=== PATIENT | male | born 1960 | race Caucasian/White ===

== ENCOUNTER 2025-04-26 11:50 | Emergency (ER) | payer MEDICARE, OTHER, SELFPAY ==
--- NOTE | 2025-04-26 11:52 | XRR_ITS ---
PROCEDURE INFORMATION: Exam: XR Chest Exam date and time: 04/26/2025 12:21 PM Age: 65 years old Clinical indication: Pain; Chest pressure; Additional info: Cp TECHNIQUE: Imaging protocol: Radiologic exam of the chest. Views: 1 view. COMPARISON: No relevant prior studies available. FINDINGS: Lungs: Unremarkable. No consolidation. Pleural spaces: Unremarkable. No gross pleural effusion. No pneumothorax. Heart/Mediastinum: Unremarkable. No cardiomegaly. Bones/joints: There are costochondral calcifications. XR/XR chest 1V portable [id number] IMPRESSION: No acute cardiopulmonary process.
[2025-04-26 11:57] VITALS: PULSE 165; TEMP 36.6; O2SAT 98; BMI 32.0
--- NOTE | 2025-04-26 11:57 | ECG_ITS ---
[facility]25[facility]26 Pat Name: Heath Hamilton Department: Room: Gender: Male Spanish Interpreter: : 1960 Requested By: Zack Munroe Order Number: [id number] Modi MD: Kevin Tinsley M.D. Measurements Intervals [place] Rate: 156 P: 0 TN: 0 QRS: 9 QRSD: 80 T: 64 QT: 290 QTc: 467 Interpretive Statements ATRIAL FIBRILLATION WITH RAPID VENTRICULAR RESPONSE NONSPECIFIC ST & T-WAVE ABNORMALITY Compared to ECG 03/06/2018 14:15:31 Sinus tachycardia no longer present Electronically Signed On 04-26-2025 14:59:21 CHIEF CLERK by Kevin Tinsley M.D. [email or web address]
--- OUTSIDE RECORDS SUMMARY | 2025-04-26 12:01 | XMS_ITS | Data Portability ---
Author Organization [facility] Villegas [facility] Monty Joseph [facility] Address [address] [facility] [address] [place] [address] Assessment No assessment recorded. Plan of Treatment Reminders Order Date Submit Date Provider Last Modified By Organization Details Last Modified Time Details Appointments OFFICE VISIT 15 2025 08:30A Mae Leigh MD Not available Not available Not available Lab hemoglobi n A1C/hemog lobin total, QN, blood 2024 025 [facility], [address] [facility], [address], [address], 04/03/2025 11:53:09 CMP, serum or plasma 2024 025 [facility], [address], [address], 04/03/2025 12:06:38 CMP, serum or plasma 2024 025 [facility]I [facility], [address] [place] [address], [address], [place], [phone], 10/01/2024 03:56:37 lipid panel, blood 2024 025 [email or web address] [employer] [facility], [address] [place] [address] 248, [address], [place], [address], 10/08/2024 14:07:37 CBC 2024 025 [facility], [address], [address], [place], [address], 09/30/2024 12:02:57 hemoglobi n A1C/hemog lobin total, QN, blood 2024 025 [facility], [address], [address], [place], [address], 09/30/2024 12:38:24 CMP, serum or plasma 2023 024 [facility], [address] [place] [address], [address], [place], [address], 09/29/2023 10:48:10 lipid panel, blood 2023 024 [email or web address], [address] [place] [address], [address], [place], [address], 10/08/2023 09:20:32 CBC 2023 024 [facility], [address], [address], [place], [address], 09/28/2023 11:01:36 HbA1c (hemoglob in A1c), blood 2023 024 [facility] ([facility] [address] [place], [address], 09/28/2023 11:27:05 Referral orthopedi c surgeon referral [address] DO, [address] [place], [address], 04/13/2025 11:32:30 Procedures None recorded. Surgeries None recorded. Imaging XR, wrist, 3 or more view [address], [address] [place], [address], 04/02/2024 09:57:36 XR, hand, 3 or more view 2023 Not available 04/11/2024 09:04:19 Medication Orders metoprolo l succinate ER 100 mg tablet,ex tended release 24 hr 2024 [id number], [address], [facility] [address], [place], [address], 04/03/2025 11:24:40 hydroxyzi ne HCl 25 mg tablet 2024 [facility], [address], [place], [address], 09/30/2024 11:35:00 betametha sone acetate and sodium phos 6 mg/mL suspensio n for injection 2024 [email or web address] Not available 04/03/2025 10:59:03 mupirocin 2 % topical ointment 2024 [facility] 15, [address], [place], [address], 09/30/2024 11:35:02 losartan 100 mg tablet 2023 [facility] 15, [address], [place], [address], 04/01/2024 11:37:31 tramadol 50 mg tablet [email or web address] [facility] [address] [facility] 15, [address], [place], [address], 04/03/2025 10:59:00 prednison e 10 mg tablet [email or web address], [address], [place], [address], 09/30/2024 10:44:40 amoxicill in 875 mg tablet 2023 024 [email or web address] 15, [address], [place], [address], 11/07/2023 08:42:22 metoprolo l succinate ER 50 mg tablet,ex tended release 24 hr [email or web address] [place] [address] Pharmacy 15, [address], [place], [address], 04/03/2025 10:58:31 Patient TargetsNo targets recorded. Patient Instructions Encounter Date Encounter Id Patient Instructions Last Modified By Organization Details Last Modified Time 03/29/2024 [id number] Instructed on e AURELIA wrap, Ice, elevated and NSAIDS. Will await radiology read. Not available 04/05/2024 23:12:36 lateral view there could be a possible subtle fracture of the second left metacarpal. It is hard to tell. Will wait for the radiologist read. We applied an AURELIA wrap. Not available 04/05/2024 23:12:44 Reason for Referral Orthopedic Surgeon Referral for Pain of knee region Referring Physician: Eduard Leigh, Family Medicine, Encounter Date: 04/03/2025 Results Created Date Observation Date Name Description Value Unit Range Abnormal Flag Note LastModifiedBy Organization Detail LastModifiedTime 09/28/1909/28/2023 CBC WBC 9.8 x10 4.5-10 .5 Not Available [facility] [address], [place], [address], 09/28/2023 11:01:36 09/28/19 24 09/28/2023 CBC RBC 4.87 x10 4.30-5 .90 Not Available [facility] [address], [place], [address], 09/28/2023 11:01:36 04/19/20 24 09/28/2023 CBC HGB 15.8 g/dL 13.5-1 8.0 Not Available [facility] [address] [facility] 1, [place], [address], 09/28/2023 11:01:36 09/28/19 24 09/28/2023 CBC HCT 46.0 % 35.0-6 0.0 Not Available [facility] [address] [facility] 1, [place], [address], 09/28/2023 11:01:36 09/28/19 24 09/28/2023 CBC MCV 94.5 fL 80.0-9 9.9 Not Available [facility] [address] [facility] 1, [place], [address], 09/28/2023 11:01:36 09/28/19 24 09/28/2023 CBC MCH 32.5 pg 27.0-3 2.0 high Not Available [facility] [address] [facility] 1, [place], [address], 09/28/2023 11:01:36 09/28/19 24 09/28/2023 CBC MCHC 34.4 g/dL 32.0-3 6.0 Not Available [facility] [address] [facility] 1, [place], [address], 09/28/2023 11:01:36 09/28/19 24 09/28/2023 CBC RDW 13.2 % 11.5-1 4.5 Not Available [facility] [address] [facility] 1, [place], [address], 09/28/2023 11:01:36 09/28/19 24 09/28/2023 CBC plt 192.7 x10 150.0- 451.0 Not Available [facility] [address] [facility] 1, [place], [address], 09/28/2023 11:01:36 09/28/19 24 09/28/2023 CBC lymphocytes % 19.1 % 20.0-5 0.0 low Not Available [facility] [address] [facility] 1, [place], [address], 09/28/2023 11:01:36 09/28/19 24 09/28/2023 CBC granulcytes % 67.0 % 30.0-7 0.0 Not Available [facility] [address] [facility] 1, [place], [address], 09/28/2023 11:01:36 09/28/19 24 09/28/2023 CBC monocytes % 9.5 % 2.0-10 .0 Not Available [facility] [address] [address], [place], [address], 09/28/2023 11:01:36 09/28/19 24 09/28/2023 CBC granulcytes# 6.6 x10 Not Leyla ilable [facility] [address] [address], [place], [address], 09/28/2023 11:01:36 09/28/19 24 09/28/2023 CBC lymphocytes # 1.9 x10 Not Available [facility] [address] [facility] 1, [place], [address], 09/28/2023 11:01:36 09/28/19 24 09/28/2023 CBC monocytes # 0.9 x10 Not Avai lable [facility] [address] [address], [place], [address], 09/28/2023 11:01:36 09/28/19 24 09/29/2023 LIPID PANEL , STAND DENISE cholesterol, total 152 mg/dL <200 normal Not Available [facility] [facility] [address], [place], [address], 09/29/2023 10:48:09 09/28/19 24 09/29/2023 LIPID PANEL , STAND DENISE HDL cholesterol 43 mg/dL > or = 40 normal Not Available [facility] [address] [place], [address], 09/29/2023 10:48:09 09/28/19 24 09/29/2023 LIPID PANEL , STAND DNEISE triglyceride s 141 mg/dL <150 normal Not Available [facility] [address], [address], 09/29/2023 10:48:09 09/28/19 24 09/29/2023 LIPID PANEL , STAND DENISE LDL-choleste rol 85 mg/dL _(yaz c) normal Refer ence range : <100 Cesar able range <100 mg/dL for prima ry preve ntion ; <70 mg/dL for patie nts with CHD or diabe tic patie nts with > or = 2 CHD risk facto rs. LDL-C is now calcu lated using the Yarelis n-Hop kins calcu joey n, which is a valid ated novel andrea garibay than the Fried tawnya equat ion in the estim ation of LDL-C . Yarelis byrd SS et al. LUKE. 2013; 310(1 9): 2061- 2068 (http ://ed ucati on.Michael garrison Defywires. com/f aq/FA Q164) Not Available [address] [address] [place], [address], 09/29/2023 10:48:09 09/28/19 24 09/29/2023 LIPID PANEL , STAND DENISE chol/HDLC ratio 3.5 (calc ) <5.0 normal Not Available [facility] [address] [place], [address], 09/29/2023 10:48:09 09/28/19 24 09/29/2023 LIPID PANEL , STAND DENISE non HDL cholesterol 109 mg/dL _(yaz c) <130 normal For patie nts with diabe kleber plus 1 major ASCVD risk facto r, treat ing to a non-H DL-C goal of <100 mg/dL (LDL- C of <70 mg/dL ) is lamar das optio n. Not Available [address] [place], [address], 09/29/2023 10:48:09 09/28/19 24 09/29/2023 COMPR EHENS CHEMO METAB OLIC PANEL glucose 143 mg/dL 65-99 high Fasti ng refer ence inter jayla For someo ne witho ut known diabe kleber, a gluco se value >125 mg/dL indic ates that they may have diabe kleber and this shoul d be confi rmed with a follo w-up test. Not Available [address] [place], [address], 09/29/2023 10:48:10 09/28/19 24 09/29/2023 COMPR EHENS CHEMO METAB OLIC PANEL urea nitrogen (BUN) 14 mg/dL 7-25 normal Not Available [address] [place], [address], 09/29/2023 10:48:10 09/28/19 24 09/29/2023 COMPR EHENS CHEMO METAB OLIC PANEL creatinine 0.98 mg/dL 0.70-1 .35 normal Not Available [facility] [address] [address] [place], [address], 09/29/2023 10:48:10 09/28/19 24 09/29/2023 COMPR EHENS CHEMO METAB OLIC PANEL eGFR 87 mL/mi n/1.7 3m2 > or = 60 normal Not Available [address] [address] [place], [address], 09/29/2023 10:48:10 09/28/19 24 09/29/2023 COMPR EHENS CHEMO METAB OLIC PANEL BUN/creatini ne ratio SEE NOTE: (calc ) 6-22 Not Repor ngoc: BUN and Creat inine are withi n refer ence range . Not Available [address], [address], 09/29/2023 10:48:10 09/28/19 24 09/29/2023 COMPR EHENS CHEMO METAB OLIC PANEL sodium 136 mmol/ L 135-14 6 normal Not Available [address], [address], 09/29/2023 10:48:10 09/28/19 24 09/29/2023 COMPR EHENS CHEMO METAB OLIC PANEL potassium 4.6 mmol/ L 3.5-5. 3 normal Not Available [address], [address], 09/29/2023 10:48:10 09/28/19 24 09/29/2023 COMPR EHENS CHEMO METAB OLIC PANEL chloride 104 mmol/ L 98-110 normal Not Available [address], [address], 09/29/2023 10:48:10 09/28/19 24 09/29/2023 COMPR EHENS CHEMO METAB OLIC PANEL carbon dioxide 25 mmol/ L 20-32 normal Not Available [address], [address], 09/29/2023 10:48:10 09/28/19 24 09/29/2023 COMPR EHENS CHEMO METAB OLIC PANEL calcium 9.7 mg/dL 8.6-10 .3 normal Not Available [address], [address], 09/29/2023 10:48:10 09/28/19 24 09/29/2023 COMPR EHENS CHEMO METAB OLIC PANEL protein, total 7.7 g/dL 6.1-8. 1 normal Not Available [address] [place], [address], 09/29/2023 10:48:10 09/28/19 24 09/29/2023 COMPR EHENS CHEMO METAB OLIC PANEL albumin 4.3 g/dL 3.6-5. 1 normal Not Available [address], [address], 09/29/2023 10:48:10 09/28/19 24 09/29/2023 COMPR EHENS CHEMO METAB OLIC PANEL globulin 3.4 g/dL_ (calc ) 1.9-3. 7 normal Not Available [address], [address], 09/29/2023 10:48:10 09/28/19 24 09/29/2023 COMPR EHENS CHEMO METAB OLIC PANEL albumin/glob ulin ratio 1.3 (calc ) 1.0-2. 5 normal Not Available [address] [address] [place], [address], 09/29/2023 10:48:10 09/28/19 24 09/29/2023 COMPR EHENS CHEMO METAB OLIC PANEL bilirubin, total 0.6 mg/dL 0.2-1. 2 normal Not Available [address], [address], 09/29/2023 10:48:10 09/28/19 24 09/29/2023 COMPR EHENS CHEMO METAB OLIC PANEL alkaline phosphatase 67 U/L 35-144 normal Not Available [facility] [address] [address] [place], [address], 09/29/2023 10:48:10 09/28/19 24 09/29/2023 COMPR EHENS CHEMO METAB OLIC PANEL AST 17 U/L 10-35 normal Not Available [address], [address], 09/29/2023 10:48:10 09/28/19 24 09/29/2023 COMPR EHENS CHEMO METAB OLIC PANEL ALT 21 U/L 9-46 normal Not Available [facility] [address] [place], [address], 09/29/2023 10:48:10 09/28/19 24 09/28/2023 HbA1c (hemo globi n A1c), blood HbA1c 6.1 Not Available [facility] ([facility]) [address] [place], [address], 09/28/2023 10:20:23 10/01/19 25 09/30/2024 CBC WBC 10.5 x10 4.5-10 .5 Not Available [facility] [address] [facility] 1, [place], [address], 09/30/2024 12:02:56 10/01/19 25 09/30/2024 CBC RBC 4.89 x10 4.30-5 .90 Not Available [facility] [address] [facility] 1, [place], [address], 09/30/2024 12:02:56 10/01/19 25 09/30/2024 CBC HGB 16.2 g/dL 13.5-1 8.0 Not Available [facility] [address] [facility] 1, [place], [address], 09/30/2024 12:02:56 10/01/19 25 09/30/2024 CBC HCT 47.3 % 35.0-6 0.0 Not Available [facility] [address] [facility] 1, [place], [address], 09/30/2024 12:02:56 10/01/19 25 09/30/2024 CBC MCV 96.8 fL 80.0-9 9.9 Not Available [facility] [address] [facility] [address] [facility] 1, [place], [address], 09/30/2024 12:02:56 10/01/19 25 09/30/2024 CBC MCH 33.0 pg 27.0-3 2.0 high Not Available [facility] [address] [facility] [address] [facility] 1, [place], [address], 09/30/2024 12:02:56 10/01/19 25 09/30/2024 CBC MCHC 34.2 g/dL 32.0-3 6.0 Not Available [facility] [address] [facility] 1, [place], [address], 09/30/2024 12:02:56 10/01/19 25 09/30/2024 CBC RDW 13.0 % 11.5-1 4.5 Not Available [facility] [address] [facility] 1, [place], [address], 09/30/2024 12:02:56 10/01/19 25 09/30/2024 CBC plt 212.4 x10 150.0- 451.0 Not Available [facility] [address] [facility] 1, [place], [address], 09/30/2024 12:02:56 10/01/19 25 09/30/2024 CBC lymphocytes % 17.2 % 20.0-5 0.0 low Not Available [facility] [address] [facility] 1, [place], [address], 09/30/2024 12:02:56 10/01/19 25 09/30/2024 CBC granulcytes % 72.4 % 30.0-7 0.0 high Not Available [facility] [address] [facility] 1, [place], [address], 09/30/2024 12:02:56 10/01/19 25 09/30/2024 CBC monocytes % 7.9 % 2.0-16 .0 Not Available [facility] [address] [facility] 1, [place], [address], 09/30/2024 12:02:56 10/01/19 25 09/30/2024 CBC granulcytes# 7.6 x10 Not Leyla ilable [facility] [address] [facility] 1, [place], [address], 09/30/2024 12:02:56 10/01/19 25 09/30/2024 CBC lymphocytes # 1.8 x10 Not Available [facility] [address] [facility] 1, [place], [address], 09/30/2024 12:02:56 10/01/19 25 09/30/2024 CBC monocytes # 0.8 x10 Not Avai lable [facility] [address] [facility] 1, [place], [address], 09/30/2024 12:02:56 10/01/19 25 09/30/2024 HBA1C hemaglobin A1C 6.0 4.2-6. 5 Not Available [address] [facility] 1, [place], [address], 09/30/2024 12:38:24 10/01/19 25 10/01/2024 LIPID PANEL , STAND DENISE cholesterol, total 149 mg/dL <200 normal Not Available [facility] [address] [address] [place], [address], 10/01/2024 03:56:36 10/01/19 25 10/01/2024 LIPID PANEL , STAND DENISE HDL cholesterol 44 mg/dL > or = 40 normal Not Available [facility] [address] [place], [address], 10/01/2024 03:56:36 10/01/19 25 10/01/2024 LIPID PANEL , STAND DENISE triglyceride s 155 mg/dL <150 high Not Available [facility] [address] [place], [address], 10/01/2024 03:56:36 10/01/1910/01/2024 LIPID PANEL , STAND DENISE LDL-choleste rol 80 mg/dL _(yaz c) normal Refer ence range : <100 Cesar able range <100 mg/dL for prima ry preve ntion ; <70 mg/dL for patie nts with CHD or diabe tic patie nts with > or = 2 CHD risk facto rs. LDL-C is now calcu lated using the Yarelis n-Hop kins calcu latio n, which is a valid ated novel metho d provi ronni anguiano accur acy than the Fried tawnya equat ion in the estim ation of LDL-C . Yarelis byrd SS et al. LUKE. 2013; 310(1 9): 2061- 2068 (http ://ed ucati on.BeiBei. com/f aq/FA Q164) Not Available [facility] [address] [address] [address], [place], [address], 10/01/2024 03:56:36 10/01/19 25 10/01/2024 LIPID PANEL , STAND DENISE chol/HDLC ratio 3.4 (calc ) <5.0 normal Not Available [facility] [address] [address] , [place], [address], 10/01/2024 03:56:36 10/01/1910/01/2024 LIPID PANEL , STAND DENISE non HDL cholesterol 105 mg/dL _(yaz c) <130 normal For patie nts with diabe kleber plus 1 major ASCVD risk facto r, treat ing to a non-H DL-C goal of <100 mg/dL (LDL- C of <70 mg/dL ) is lamar dixon c optio n. Not Available [facility] [address] [place], [address], 10/01/2024 03:56:36 10/01/19 25 10/01/2024 COMPR EHENS CHEMO METAB OLIC PANEL glucose 137 mg/dL 65-99 high Fasti ng refer ence inter jayla For someo ne witho ut known diabe kleber, a gluco se value >125 mg/dL indic ates that they may have diabe kleber and this shoul d be confi rmed with a follo w-up test. Not Available [address], [address], 10/01/2024 03:56:37 10/01/19 25 10/01/2024 COMPR EHENS CHEMO METAB OLIC PANEL urea nitrogen (BUN) 13 mg/dL 7-25 normal Not Available [address], [address], 10/01/2024 03:56:37 10/01/19 25 10/01/2024 COMPR EHENS CHEMO METAB OLIC PANEL creatinine 0.93 mg/dL 0.70-1 .35 normal Not Available [address], [address], 10/01/2024 03:56:37 10/01/19 25 10/01/2024 COMPR EHENS CHEMO METAB OLIC PANEL eGFR 92 mL/mi n/1.7 3m2 > or = 60 normal Not Available [address], [address], 10/01/2024 03:56:37 10/01/19 25 10/01/2024 COMPR EHENS CHEMO METAB OLIC PANEL BUN/creatini ne ratio SEE NOTE: (calc ) 6-22 Not Repor ngoc: BUN and Creat inine are withi n refer ence range . Not Available [facility] [address], [address], 10/01/2024 03:56:37 10/01/19 25 10/01/2024 COMPR EHENS CHEMO METAB OLIC PANEL sodium 137 mmol/ L 135-14 6 normal Not Available [facility] [address], [address], 10/01/2024 03:56:37 10/01/19 25 10/01/2024 COMPR EHENS CHEMO METAB OLIC PANEL potassium 4.2 mmol/ L 3.5-5. 3 normal Not Available [address], [address], 10/01/2024 03:56:37 10/01/19 25 10/01/2024 COMPR EHENS CHEMO METAB OLIC PANEL chloride 104 mmol/ L 98-110 normal Not Available [address], [address], 10/01/2024 03:56:37 10/01/19 25 10/01/2024 COMPR EHENS CHEMO METAB OLIC PANEL carbon dioxide 25 mmol/ L 20-32 normal Not Available [address], [address], 10/01/2024 03:56:37 10/01/19 25 10/01/2024 COMPR EHENS CHEMO METAB OLIC PANEL calcium 9.6 mg/dL 8.6-10 .3 normal Not Available [address], [address], 10/01/2024 03:56:37 10/01/19 25 10/01/2024 COMPR EHENS CHEMO METAB OLIC PANEL protein, total 8.0 g/dL 6.1-8. 1 normal Not Available [address], [address], 10/01/2024 03:56:37 10/01/19 25 10/01/2024 COMPR EHENS CHEMO METAB OLIC PANEL albumin 4.4 g/dL 3.6-5. 1 normal Not Available [address], [address], 10/01/2024 03:56:37 10/01/19 25 10/01/2024 COMPR EHENS CHEMO METAB OLIC PANEL globulin 3.6 g/dL_ (calc ) 1.9-3. 7 normal Not Available [address], [address], 10/01/2024 03:56:37 10/01/19 25 10/01/2024 COMPR EHENS CHEMO METAB OLIC PANEL albumin/glob ulin ratio 1.2 (calc ) 1.0-2. 5 normal Not Available [address], [address], 10/01/2024 03:56:37 10/01/19 25 10/01/2024 COMPR EHENS CHEMO METAB OLIC PANEL bilirubin, total 0.8 mg/dL 0.2-1. 2 normal Not Available [address], [address], 10/01/2024 03:56:37 10/01/19 25 10/01/2024 COMPR EHENS CHEMO METAB OLIC PANEL alkaline phosphatase 76 U/L 35-144 normal Not Available [address], [address], 10/01/2024 03:56:37 10/01/19 25 10/01/2024 COMPR EHENS CHEMO METAB OLIC PANEL AST 18 U/L 10-35 normal Not Available [address], [address], 10/01/2024 03:56:37 10/01/19 25 10/01/2024 COMPR EHENS CHEMO METAB OLIC PANEL ALT 16 U/L 9-46 normal Not Available [address], [address], 10/01/2024 03:56:37 01/01/20 25 12/31/2024 COLOG UARD cologuard result reportable NEGATI VE negati ve normal The Colog uard (TM) test was perfo rmed on this speci men. NEGAT CHEMO TEST RESUL T. A negat chemo Colog uard resul t indic ates a low likel ihood that a color ectal cance r (CRC) or advan sowmya adeno ma (crescencio omato us polyp s with more advan sowmya pre-m align ant featu res) is prese nt. The [facility] e that a perso n with a negat chemo Colog uard test has a color ectal cance r is less than 1 in 1500 (nega tive predi ctive value >99.9 %) or has an advan sowmya adeno ma is less than 5.3% (nega tive predi ctive value 94.7% ). These data are based on a prosp ectiv e cross -sect ional study of 10,00 0 indiv idual s at streator ge risk for color ectal cance r who were scree ezio with both Colog uard and colon oscop y. (uJventino Barker et al, N Engl J Med 2014; 370(1 4):12 86-12 97) The coco l value (refe rence range ) for this assay is negat chemo. COLOG UARD RE-SC REETYREL NG RECOM MENDA TION: Perio dic color ectal cance r scree irene is an impor tant part of preve ntive healt hcare for asymp tomat ic indiv idual s at streator ge risk for color ectal cance r. Follo wing a negat chemo Colog uard resul t, the Ameri can Cance r Socie ty and [place].S[place] Multi -Soci ety Task Force scree irene guide lines recom mend a Colog uard re-sc reeni ng inter jayla of 3 years . Refer ences : Ameri can Cance r Socie ty Guide line for Color ectal Cance r Scree irene: https ://slick w.can cer.o rg/ca ncer/ colon -rect al-ca ncer/ detec tion- diagn osis- stagi ng/ac s-rec ommen datio ns.ht ml.; Erlin DE LA ROSA, Jayne fleming CR, Juany OteroK, Color ectal Cance r Scree irene: Recom menda tions for Physi cians and Patie nts from the [place] Multi -Soci ety Task Force on Color ectal Cance r Screjesusita bonilla , Am Branden marquesog y 2017; 112:1 016-1 030. TEST DESCR IPTIO N: Phelan site algor ithmi c isela sis of stool DNA-b iosam kers with hemog lobin immun oassa y. Quant itati ve value s of indiv idual bioma rkers are not repor table and are not assoc iated with indiv idual bioma rker resul t refer ence range s. Colog uard is inten ded for color ectal cance r scree irene of adult s of eithe r sex, 45 years or older , who are at [facility] for color ectal cance r (CRC) . Colog uard has been appro cynthia for use by the [place] FDA. The perfo rmanc e of Colog uard was estab lishe d in a cross secti onal study of [facility] adult s aged 50-84 . Colog uard perfo rmanc e in patie nts ages 45 to 49 years was estim ated by sub-g roup isela sis of near- age group s. Colon oscop ies perfo rmed for a posit chemo resul t may find as the most clini felix signi lauren michael n: color ectal cance r [4.0% ], advan sowmya adeno ma (incl uding sessi le bren ngoc polyp s great er than or equal to 1cm diame ter) [20%] or non- advan sowmya adeno ma [31%] ; or no color ectal neopl rachel [45%] . These estim ates are deriv ed from a prosp ectiv e cross -sect ional scree irene study of 10,00 0 indiv idual s at [facility] risk for color ectal cance r who were scree ezio with both Colog uard and colon oscop y. (Juventino Kapoor al, N Engl J Med 2014; 370(1 4):12 86-12 97.) Colog uard may produ ce a false negat chemo or false posit chemo resul t (no color ectal cance r or preca ncero us polyp prese nt at colon oscop y follo w up). A negat chemo Colog uard test resul t does not guara ntee the absen ce of CRC or advan sowmya adeno ma (pre- cance r). The curre nt Colog uard scree irene inter jayla is every 3 years . (Amer ican Cance r Socie ty and U.S. Multi -Soci ety Task Force ). Colog uard perfo rmanc e data in a 0 patie nt pivot al study using colon oscop y as the refer ence metho d can be acces sed at the follo wing locat ion: www.e xactl abs.c om/re sulfracisco . Addit ional descr iptio n of the Colog uard test proce ss, warni ngs and preca ution s can be found at www.c nydia denise.c om. Not Available [facility] [address], [place], [address], 01/06/2025 04:49:48 04/03/2004/03/2025 HBA1C hemaglobin A1C 5.6 4.2-6. 5 Not Available [facility] [address] [address], [place], [address], 04/03/2025 11:53:09 04/03/2004/03/2025 CMP (MALE ) glucose 146.0 mg/dL 60.0-9 9.0 high Not Available [facility] [address] [facility] [address], [place], [address], 04/03/2025 12:06:38 04/03/20 25 04/03/2025 CMP (MALE ) BUN (blood urea nitrogen) 14.0 mg/dL 10.0-2 6.0 Not Available [facility] [address] [facility] [address], [place], [address], 04/03/2025 12:06:38 04/03/20 25 04/03/2025 CMP (MALE ) creatinine (serum) 0.9 mg/dL 0.4-1. 5 Not Available [facility] [address] [facility] 1, [place], [address], 04/03/2025 12:06:38 04/03/20 25 04/03/2025 CMP (MALE ) BUN/creatini ne ratio 15.56 ratio Not Available [facility] [address] [facility] [address], [place], [address], 04/03/2025 12:06:38 04/03/20 25 04/03/2025 CMP (MALE ) eGFR calculated 90.0 Not Available [facility] [address] [facility] [address], [place], [address], 04/03/2025 12:06:38 04/03/20 25 04/03/2025 CMP (MALE ) total protein 8.3 g/dL 6.0-8. 5 Not Available [facility] [address] [facility] [address], [place], [address], 04/03/2025 12:06:38 04/03/20 25 04/03/2025 CMP (MALE ) total bilirubin 0.9 mg/dL 0.2-1. 3 Not Available [facility] [address] [facility] [address], [place], [address], 04/03/2025 12:06:38 04/03/20 25 04/03/2025 CMP (MALE ) albumin 4.6 g/dL 3.5-5. 5 Not Available [facility] [address] [facility] 1, [place], [address], 04/03/2025 12:06:38 04/03/20 25 04/03/2025 CMP (MALE ) globulin 3.7 calc Not Available [facility] [address] [facility] [address], [place], [address], 04/03/2025 12:06:38 04/03/20 25 04/03/2025 CMP (MALE ) AST (SGOT) 23.0 U/L 0.0-46 .0 Not Available [facility] [address] [facility] [address], [place], [address], 04/03/2025 12:06:38 04/03/20 25 04/03/2025 CMP (MALE ) altv (SGPT) 20.0 U/L 13.0-6 9.0 normal Not Available [facility] [address] [facility] [address], [place], [address], 04/03/2025 12:06:38 04/03/20 25 04/03/2025 CMP (MALE ) A/G ratio 1.2 ratio Not Available [facility] [address] [facility] [address], [place], [address], 04/03/2025 12:06:38 04/03/20 25 04/03/2025 CMP (MALE ) ALP phos 82.0 U/L 30.0-1 40.0 normal Not Available [facility] [address] [facility] [address], [place], [address], 04/03/2025 12:06:38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
--- NOTE | 2025-04-26 12:02 | W.ED.ARRPALP ---
HPI - Arrhythmia/Palpitations General: Chief Complaint: Arrhythmia/Palpitations Stated Complaint: fast beating and skipping Time Seen by Provider: 04/26/25 12:01 Source: patient Mode of arrival: ambulatory Limitations: no limitations History of Present Illness: 65-year-old male has a history of A-fib states that he had went hunting this morning and then took an allergy pill when he got home started having palpitations close his heart rate was running fast. His heart rate here is in the 150s with A-fib with RVR. He is on metoprolol along with Eliquis. He denies any chest pain denies any shortness of breath denies any worse improved factors. Related Data Home Medications ?Medication ?Instructions ?Recorded ?Confirmed apixaban 5 mg tablet (Eliquis) 5 tab PO BID 02/05/23 04/26/25 atorvastatin 20 mg tablet 1 tab PO DAILY 02/05/23 04/26/25 diazepam 2 mg tablet 1 tab PO BID PRN Anxiety 02/05/23 04/26/25 metformin 500 mg tablet,extended 500 mg PO DAILY 02/05/23 04/26/25 release 24 hr omeprazole 40 mg capsule,delayed 40 mg PO BID 02/05/23 04/26/25 release losartan 100 mg tablet 100 mg PO DAILY 04/26/25 04/26/25 metoprolol succinate 100 mg 100 mg PO DAILY 04/26/25 04/26/25 tablet,extended release 24 hr Allergies Allergy/AdvReac Type Severity Reaction Status Date / Time Sulfa (Sulfonamide Allergy Unknown Verified 04/26/25 12:02 Antibiotics) Physical Exam Const: COMMON NORMALS: no acute distress, patient oriented x3 and healthy appearing HENMT: COMMON NORMALS: normocephalic and atraumatic HEAD & SCALP: normocephalic and atraumatic Eye: COMMON NORMALS: conjunctivae normal CONJUNCTIVA: Yes conjunctivae normal Neck/C-Spine: COMMON NORMALS: full ROM and supple Chest: COMMONS NORMALS: normal inspection of the chest Resp: COMMON NORMALS: normal respiratory effort, No retractions, No use of accessory muscles and clear to auscultation bilaterally AUSCULTATION: clear to auscultation bilaterally Cardio: COMMON NORMALS: No murmurs present (Cardio) RATE: tachycardic RHYTHM: abnormal rhythm irregularly irregular GI: COMMON NORMALS: Normal to inspection, nondistended, normoactive bowel sounds present, Soft to palpation, non-tender and no masses PALPATION: Yes Soft to palpation Extremity: COMMON NORMALS: normal to inspection and full ROM Neuro: COMMON NORMALS: patient oriented x3, moves all extremities and no focal motor deficits Psych: COMMON NORMALS: mental status grossly normal, Normal thought process present and cooperative THOUGHT PROCESS: Normal thought process present Skin: COMMON NORMALS: no rashes or lesions noted and no wounds GENERAL SKIN EXAM: no rashes or lesions noted Course Vital Signs: Vital signs: Vital Signs Temperature 97.8 F 04/26/25 11:57 Pulse Rate 94 04/26/25 12:24 Respiratory Rate 17 04/26/25 12:24 Blood Pressure 128/78 04/26/25 12:24 Pulse Oximetry 100 04/26/25 12:24 Oxygen Delivery Me thod Room Air 04/26/25 12:24 MDM - Arrhythmia/Palpitations Medical Decision Making Patient presents here with A-fib with RVR. Original heart rate was in the 140s he does have a history of A-fib. I did review his labs that showed no significant abnormalities. Chest x-ray was interpreted by me and showed no acute findings. EKG did show A-fib with RVR heart rate [address] elevation QRS 80 QTc 378. His heart rate did improve here with 1 dose of Cardizem is now in the 70s. He has had no chest pain no shortness of breath no signs of ACS or pulm emboli. He stable for discharge at this time did go over findings with him he is to follow-up with his PCP and return if worsening he understands agrees to plan. Medical Records I reviewed the patient's medical records. Lab Data I reviewed the patient's lab results. 04/26/25 12:17 04/26/25 12:17 Laboratory Results WBC 12.28 10^3/uL (3.29-11.43) H 04/26/25 12:17 RBC 5.31 10^6/uL (3.85-5.65) 04/26/25 12:17 Hgb 17.50 g/dL (11.27-16.99) H 04/26/25 12:17 Hct 48.3 % (37-53) 04/26/25 12:17 MCV 91.0 fl (82-101) 04/26/25 12:17 MCH 33.0 pg (27-33) 04/26/25 12:17 MCHC 36.2 g/dL (30-55) 04/26/25 12:17 RDW 13.1 % (12.1-15.1) 04/26/25 12:17 Plt Count 261 10^3/cmm (157-399) 04/26/25 12:17 MPV 11.7 fL (7.4-10.4) H 04/26/25 12:17 Neut % (Auto) 75.4 % 04/26/25 12:17 Lymph % (Auto) 15.9 % 04/26/25 12:17 Jerauld % (Auto) 7.2 % 04/26/25 12:17 Eos % (Auto) 0.7 % 04/26/25 12:17 Baso % (Auto) 0.6 % 04/26/25 12:17 Neut # (Auto) 9.27 10^3/uL (1.8-7.7) H 04/26/25 12:17 Lymph # (Auto) 2.0 10^3/uL (0.8-4.8) 04/26/25 12:17 Jerauld # (Auto) 0.9 10^3/uL (0.2-0.9) 04/26/25 12:17 Eos # (Auto) 0.1 10^3/uL (0.0-0.8) 04/26/25 12:17 Baso # (Auto) 0.1 10^3/uL (0.0-0.1) 04/26/25 12:17 Nucleated RBC % (auto) 0 % 04/26/25 12:17 Nucleated RBCs # 0.0 /100WBC 04/26/25 12:17 Sodium 141 mmol/L (136-145) 04/26/25 12:17 Potassium 4.1 mmol/L (3.5-5.1) 04/26/25 12:17 Chloride 105 mmol/L (98-107) 04/26/25 12:17 Carbon Dioxide 22 mmol/L (22-29) 04/26/25 12:17 Anion Gap 18.1 (5-19) 04/26/25 12:17 BUN 11 mg/dL (8-23) 04/26/25 12:17 Creatinine 0.9 mg/dL (0.7-1.2) 04/26/25 12:17 GFR Calculation 84.7 mL/min (90-130) L 04/26/25 12:17 Glucose 150 mg/dL (65-115) H 04/26/25 12:17 Calculated Osmolality 294 mOsm/kg (285-295) 04/26/25 12:17 Calcium 10.4 mg/dL (8.5-10.5) 04/26/25 12:17 Total Bilirubin 0.9 mg/dL (0.15-1.2) 04/26/25 12:17 AST 15 U/L (0-40) 04/26/25 12:17 ALT 18 U/L (0-41) 04/26/25 12:17 Alkaline Phosphatase 98 U/L (40-130) 04/26/25 12:17 Total Protein 8.9 g/dL (6.6-8.7) H 04/26/25 12:17 Albumin 4.8 g/dL (3.5-5.2) 04/26/25 12:17 Globulin 4.1 g/dL (1.3-4.6) 04/26/25 12:17 TSH 1.07 uIU/mL (0.27-4.20) 04/26/25 12:17 All radiology interpretation(s) finalized by discharge EKG Data EKG 1: I personally reviewed and interpreted this EKG as follows: EKG interpretation date: 04/26/25 EKG interpretation time: 11:57 Interpretation: afib with rvr hr [address] elevation qrs 80 qtc 378 Discharge Plan Discharge Patient Disposition: Home Clinical Impression: Atrial fibrillation with RVR Condition: Stable Prescriptions: No Action Eliquis 5 mg tablet 5 tab PO BID metformin 500 mg tablet extended release 24 hr 500 mg PO DAILY atorvastatin 20 mg tablet 1 tab PO DAILY diazepam 2 mg tablet 1 tab PO BID PRN (Reason: Anxiety) omeprazole 40 mg capsule,delayed release(DR/EC) 40 mg PO BID metoprolol succinate 100 mg tablet extended release 24 hr 100 mg PO DAILY losartan 100 mg tablet 100 mg PO DAILY Discharge Orders: Discharge ED (Routine); Ordered 04/26/25 Ordered By: Zack Munroe Referrals: Eduard Leigh MD [Primary Care Provider, [facility]] - 4-7 days Discharge Diet: Advance as tolerated Discharge Activity: Resume usual activity Patient Instructions: A-fib (Atrial Fibrillation) (ED) Print Language: Malay Coding Level of Care Code ED Robotic Technician for Radha Diehl
[2025-04-26] MEDS: dilTIAZem 5 mg/mL SDV 5 mL 20 MG IVP (12:10)
[2025-04-26 12:14] VITALS: BP 149/114; PULSE 123; RESP 17; O2SAT 98
[2025-04-26 12:20] LABS: Hematocrit 48.3 % (37-53); Hemoglobin 17.50 g/dL (11.27-16.99); Mean Corpuscular HGB Conc 36.2 g/dL (30-55); Mean Corpuscular Hemoglobin 33.0 pg (27-33); Mean Corpuscular Volume 91.0 fl (82-101); Nucleated Red Blood Cells % 0 %; Platelet Count 261 10^3/cmm (157-399); Red Blood Count 5.31 10^6/uL (3.85-5.65); White Blood Count 12.28 10^3/uL (3.29-11.43)
[2025-04-26 12:24] VITALS: BP 128/78; PULSE 94; RESP 17; O2SAT 100
[2025-04-26 12:46] LABS: Alanine Aminotransferase 18 U/L (0-41); Albumin Level 4.8 g/dL (3.5-5.2); Alkaline Phosphatase 98 U/L (40-130); Anion Gap 18.1 (5-19); Aspartate Amino Transferase 15 U/L (0-40); Blood Urea Nitrogen 11 mg/dL (8-23); Calcium 10.4 mg/dL (8.5-10.5); Carbon Dioxide 22 mmol/L (22-29); Chloride 105 mmol/L (98-107); Globulin 4.1 g/dL (1.3-4.6); Glucose 150 mg/dL (65-115); Osmolality Calculated 294 mOsm/kg (285-295); Potassium 4.1 mmol/L (3.5-5.1); Sodium 141 mmol/L (136-145); Thyroid Stimulating Hormone 1.07 uIU/mL (0.27-4.20); Total Protein 8.9 g/dL (6.6-8.7)
[2025-04-26 13:00] VITALS: BP 130/79; PULSE 76; O2SAT 96
== END 2025-04-26 13:02 | disposition home or self-care (01) ==
PROVIDERS: Emergency Provider Emergency Medicine; Family Provider Family Medicine; PCP Family Medicine
DX: I48.20 Chronic atrial fibrillation, unspecified (principal); Z79.01 Long term (current) use of anticoagulants; Z79.84 Long term (current) use of oral hypoglycemic drugs
CPT/HCPCS: 36415; 71045; 80053; 84443; 85025; 93005; 96361; 96374; 99285; J3490; J7030